=== PATIENT | male | born 1970 | race Caucasian/White ===

== ENCOUNTER 2018-06-08 14:49 | Outpatient (CLI) | payer OTHER | END 2018-06-08 14:50 | disposition home or self-care (01) | LOC: CTENTCT 14:49 | PROVIDERS: ATTEND Otolaryngology Plastic Surgery within the Head & Neck | DX: J32.8 Other chronic sinusitis (principal) | CPT/HCPCS: 70486 ==

== ENCOUNTER 2021-09-18 07:16 | Outpatient (CLI) | payer BC ==
[2021-09-18 07:48] LABS: #Eosinphils 0.1 10x3/uL (0.0-0.5); #Monocytes 0.7 10x3/uL (0.0-1.1); #Neutrophils 4.1 10x3/uL (1.5-8.4); %Basophils 0.3 % (0.0-2.0); %Eosinophils 1.9 % (0.0-6.0); %Lymphocytes 32.9 % (18.0-47.0); %Monocytes 8.7 % (0.0-10.0); %Neutrophils 55.7 % (40.0-75.0); Hemoglobin 15.9 g/dL (13.5-17.5); Mean Corpuscular HGB CONC 36.1 g/dL (32.0-36.0); Mean Corpuscular Hemoglobin 29.8 pg (27.0-33.0); Mean Corpuscular Volume 82.6 fl (81.2-95.1); Mean Platelet Volume 9.3 fl (7.4-10.4); Platelet Count 240 10x3/uL (150-450); RBC Distribution Width 11.9 % (11.5-14.5); Red Blood Cell (RBC) Count 5.33 10x6/uL (4.32-5.72); White Blood Cell (WBC) Count 7.4 10x3/uL (3.5-10.5)
== END 2021-09-18 07:17 | disposition home or self-care (01) ==
LOC: LABBT 07:16
PROVIDERS: ATTEND Orthopaedic Surgery Hand Surgery
DX: Z01.812 Encounter for preprocedural laboratory examination (principal); S69.82XA Other specified injuries of left wrist, hand and finger(s), initial encounter; Z20.822 Contact with and (suspected) exposure to COVID-19
CPT/HCPCS: 85025; 87811

== ENCOUNTER 2021-09-21 10:10 | Day surgery (SDC) | payer BC ==
[2021-09-19 15:40] VITALS: BMI 27.2
[2021-09-21] MEDS ORDERED: Fentanyl 100 MCG/2 ML VIAL ONE (12:44)
[2021-09-21] MEDS ORDERED: Bacitracin Zinc Ointment 30 gm TUBE ONE (12:56)
[2021-09-21] MEDS ORDERED: Neomycin-Polymyxin 1 ML AMP ONE (12:56)
[2021-09-21] MEDS ORDERED: EPINEPHrine 1 MG/ML AMP ONE (12:56)
[2021-09-21] MEDS ORDERED: Bupivacaine PF 0.5% 30 ML VIAL ONE (12:56)
[2021-09-21] MEDS ORDERED: fentaNYL Citrate/PF 100 MCG/2 ML SYRINGE ONE (12:56)
[2021-09-21] MEDS ORDERED: Bupivacaine HCl 0.5%/Epinephrine 1:200,000/PF 30 ml Vial ONE (13:00)
[2021-09-21] MEDS ORDERED: CEFAZOLIN 2 GM VIAL ONE (13:07)
[2021-09-21] MEDS ORDERED: Sodium Chloride 0.9% 100 ML ONE (13:07)
[2021-09-21] MEDS ORDERED: Midazolam HCl 2 mg/2 ml Vial ONE ×2 (13:11→13:13)
== END 2021-09-21 16:21 | disposition home or self-care (01) ==
LOC: SDC 10:10
PROVIDERS: ATTEND Orthopaedic Surgery Hand Surgery
PROC: 0PBL0ZZ Excision of Left Ulna, Open Approach (ICD-10-PCS; principal; 2021-09-21)
PROC: 0MB64ZZ Excision of Left Wrist Bursa and Ligament, Percutaneous Endoscopic Approach (ICD-10-PCS; principal; 2021-09-21)
PROC: 0PHL04Z Insertion of Internal Fixation Device into Left Ulna, Open Approach (ICD-10-PCS; principal; 2021-09-21)
DX: S63.592A Other specified sprain of left wrist, initial encounter (principal); M65.88 Other synovitis and tenosynovitis, other site; Z86.16 Personal history of COVID-19; Z88.1 Allergy status to other antibiotic agents; Z88.2 Allergy status to sulfonamides; W19.XXXA Unspecified fall, initial encounter
CPT/HCPCS: 76000; C1713; J0171; J0690; J2250; J3010; J3490; S0020

== ENCOUNTER → 2024-04-02 | Day surgery (SDC) | payer BC ==
[~2024-04-02] MED LIST: Gadobenate Dimeglumine 2 ML, Sodium Chloride 0.9% 250 ML 10 ML, Iopamidol 8 ML, Lidocai... FS SCH; Sodium Bicarbonate 2.5 MEQ/5 ML SDV ONE
== END ==
LOC: CT 08:40
PROVIDERS: ATTEND Orthopaedic Surgery
PROC: BP08YZZ Plain Radiography of Right Shoulder using Other Contrast (ICD-10-PCS; principal; 2024-04-02)
DX: M24.811 Other specific joint derangements of right shoulder, not elsewhere classified (principal); S52.602K Unspecified fracture of lower end of left ulna, subsequent encounter for closed fracture with nonunion; X58.XXXA Exposure to other specified factors, initial encounter
CPT/HCPCS: 23350; 77002; A9577; J0171; J7050; Q9967

== ENCOUNTER 2024-04-20 13:20 | Outpatient (CLI) | payer BC | END 2024-04-20 13:21 | disposition home or self-care (01) | LOC: MRI 13:20 | PROVIDERS: ATTEND Surgery | DX: M54.6 Pain in thoracic spine (principal); M47.814 Spondylosis without myelopathy or radiculopathy, thoracic region; M43.8X4 Other specified deforming dorsopathies, thoracic region | CPT/HCPCS: 72070; 72146 ==